=== PATIENT | female | born 1995 | race African-American/Black ===

== ENCOUNTER 2017-10-09 19:06 | Emergency (ER) | payer SELFPAY ==
[2017-10-09 19:14] VITALS: BP 150/79
--- NOTE | 2017-10-09 19:54 | ER Document Report ---
HPI - HPI Pain Level: 5 Notes: Patient is a 22-year-old female no significant past medical history presents to the ED complaining of a ring stuck on her right ring finger that began today. Patient states that her finger started swelling with no apparent injury or other cause. Patient try to get the ring off but was unsuccessful with conservative modalities. No other concerns or complaints. Patient states that her finger is starting to go numb. Denies any headache, fever, neck pain, URI, sore throat, chest pain, palpitations, syncope, cough, shortness of breath, wheeze, dyspnea, abdominal pain, nausea/vomiting/diarrhea, urinary retention, dysuria, hematuria, or rash. - ROS Systems Reviewed and Negative: Yes All other systems reviewed and negative Past Medical History - Social History Smoking Status: Never Smoker Family History: Reviewed & Not Pertinent Vertical Provider Document - CONSTITUTIONAL Agree With Documented VS: Yes Notes: PHYSICAL EXAMINATION: GENERAL: Well-appearing, well-nourished and in no acute distress. LUNGS: Breath sounds clear to auscultation bilaterally and equal. No wheezes rales or rhonchi. HEART: Regular rate and rhythm without murmurs, rubs, gallops. Musculoskeletal: Rt ring finger: + swelling and ring stuck in place. Extremities: No cyanosis, clubbing, or edema b/l. Peripheral pulses 2+. Capillary refill less than 3 seconds. PSYCH: Normal mood, normal affect. SKIN: Warm, Dry, normal turgor, no rashes or lesions noted. - INFECTION CONTROL TRAVEL OUTSIDE OF THE [place] IN LAST 30 DAYS: No Course - Re-evaluation Re-evalutation: 10/09/17 19:52 Ring was removed successfully by Dr. Padilla after failed attempts with the ring cutter's. Pt would not allow me to place the string due to pain which prompted me to ask Dr. Padilla for assistance who removed with lubricant and slow twisting. Patient to keep rings off of fingers for the foreseeable future. Conservative measures otherwise for symptoms. Recheck with your PCM in 3-5 days. Return to the ED with any worsening/concerning symptoms otherwise as reviewed discharge. Low suspicion for any neurovascular compromise, obvious tendon/ligament rupture, obvious fracture/dislocation, septic joint. Patient is in agreement. - Vital Signs Vital signs: Temp Pulse Resp BP Pulse Ox 97.9 F 105 H 150/79 H 98 10/09/17 19:13 10/09/17 19:13 10/09/17 19:13 10/09/17 19:13 Discharge - Discharge Clinical Impression: Tight ring on finger Condition: Stable Disposition: HOME, SELF-CARE Additional Instructions: Rest, Ice, Compression, Elevation Tylenol/ibuprofen as needed Avoid use of wearing rings for the foreseeable future Light stretches daily Strength exercises as able F/u with your PCP in 3-5 days for a recheck Return to the ED with any worsening symptoms and/or development of fever, headache, chest pain, palpitations, syncope, shortness of breath, trouble breathing, abdominal pain, n/v/d, muscle weakness/paralysis, numbness/tingling, swelling, redness, or other worsening symptoms that are concerning to you. Forms: Elevated Blood Pressure Referrals: [facility] [Provider Group] - Follow up as needed
== END 2017-10-09 20:00 | disposition home or self-care (01) ==
LOC: ER 19:06
DX: S60.444A External constriction of right ring finger, initial encounter (principal); W49.04XA Ring or other jewelry causing external constriction, initial encounter
CPT/HCPCS: 99283

== ENCOUNTER 2018-01-19 22:01 | Emergency (ER) | payer MEDICAID ==
[2018-01-19 22:29] VITALS: BP 130/53
[2018-01-19 22:43] LABS: ABSOLUTE EOSINOPHILS # (AUTO) 0.1 10^3/uL (0.0-0.6); ABSOLUTE LYMPHOCYTES (AUTO) 3.2 10^3/uL (0.5-4.7); ABSOLUTE MONOCYTES (AUTO) 0.7 10^3/uL (0.1-1.4); ABSOLUTE NEUT (AUTO) 4.8 10^3/uL (1.7-8.2); BASOPHILS % (AUTO) 0.5 % (0-2); HEMATOCRIT 39.5 % (36.0-47.0); LYMPHOCYTES % (AUTO) 36.2 % (13-45); MEAN CORPUSCULAR HEMOGLOBIN 26.8 pg (27.0-33.4); MEAN CORPUSCULAR HGB CONC 32.8 g/dL (32.0-36.0); MEAN CORPUSCULAR VOLUME 82 fl (80-97); MONOCYTES % (AUTO) 7.9 % (3-13); PLATELET COUNT 330 10^3/uL (150-450); RED BLOOD COUNT 4.85 10^6/uL (3.72-5.28); SEGMENTED NEUTROPHILS % (AUTO) 54.4 % (42-78); TOTAL CELLS COUNTED % (AUTO) 100 %; WHITE BLOOD COUNT 8.8 10^3/uL (4.0-10.5)
--- NOTE | 2018-01-19 23:26 | ER Document Report ---
ED Medical Screen (RME) - General Chief Complaint: Vaginal Bleeding Stated Complaint: ABDOMINAL PAIN/VAGINAL BLEEDING Time Seen by Provider: 01/19/18 23:22 Mode of Arrival: Ambulatory Information source: Patient Notes: Patient is a 22-year-old female who presents with chief complaint of vaginal bleeding and low abdominal pain. Patient reports that her period was due to start now, however she reports that the bleeding is much heavier than usual and she has severe low abdominal pain. Patient denies any fevers, dysuria, abnormal vaginal discharge. Patient reports that she completed a round of Flagyl today for bacterial vaginosis. Patient is not on any form of control. Exam: Tenderness to palpation across the lower abdomen, no guarding, no rebound no peritoneal signs. Lung sounds clear to auscultation bilaterally. I have greeted and performed a rapid initial assessment of this patient. A comprehensive ED assessment and evaluation of the patient, analysis of test results and completion of the medical decision making process will be conducted by additional ED providers. Dictation of this chart was performed using voice recognition software; therefore, there may be some unintended grammatical errors. TRAVEL OUTSIDE OF THE [place] IN LAST 30 DAYS: No - Related Data Allergies/Adverse Reactions: No Known Allergies Allergy (Verified 10/09/17 19:54) Past Medical History Renal/ Medical History: Denies: Hx Peritoneal Dialysis Physical Exam - Vital signs Vitals: Temp Pulse Resp BP Pulse Ox 98.5 F 76 16 130/53 H 98 01/19/18 22:28 01/19/18 22:28 01/19/18 22:28 01/19/18 22:28 01/19/18 22:28 Course - Vital Signs Vital signs: Temp Pulse Resp BP Pulse Ox 98.5 F 76 16 130/53 H 98 01/19/18 22:28 01/19/18 22:28 01/19/18 22:28 01/19/18 22:28 01/19/18 22:28 - Laboratory Result Diagrams: 01/19/18 22:20 Laboratory results interpreted by me: 01/19/18 22:20 MCH 26.8 L RDW 15.0 H
[2018-01-20 01:11] LABS: APPEARANCE,URINE SLIGHTLY-CLOUDY; BILIRUBIN,URINE NEGATIVE (NEGATIVE); COLOR,URINE YELLOW; GLUCOSE, URINE NEGATIVE (NEGATIVE); KETONES,URINE NEGATIVE (NEGATIVE); LEUKOCYTE ESTERASE,URINE TRACE (NEGATIVE); NITRITE,URINE NEGATIVE (NEGATIVE); PROTEIN,URINE NEGATIVE (NEGATIVE); URINE SPECIFIC GRAVITY 1.024
--- NOTE | 2018-01-20 01:13 | ER Document Report ---
ED General - General Chief Complaint: Vaginal Bleeding Stated Complaint: ABDOMINAL PAIN/VAGINAL BLEEDING Time Seen by Provider: 01/19/18 23:22 Mode of Arrival: Ambulatory Notes: Patient is a 22-year-old female with a past medical history of morbid obesity and irregular menstrual cycles who presents with 3 days of heavy vaginal bleeding and lower abdominal cramping. Patient states that she has irregular cycles that are often heavy but they do not usually cause this much bleeding or pain. She does describe a intermittent, cramping, moderate to severe lower abdominal pain. She states that she has tried Tylenol with moderate relief of her pain. Nothing worsens her pain. She denies any lightheadedness, syncope, saturating through more than 1 tampon per hour, chest pain or shortness of breath. She has not seen her primary doctor or [facility] regarding today's concerns. TRAVEL OUTSIDE OF THE [place] IN LAST 30 DAYS: No - Related Data Allergies/Adverse Reactions: No Known Allergies Allergy (Verified 10/09/17 19:54) Past Medical History - General Information source: Patient - Social History Smoking Status: Never Smoker Frequency of alcohol use: None Drug Abuse: None Lives with: Spouse/Significant other Family History: Reviewed & Not Pertinent Renal/ Medical History: Denies: Hx Peritoneal Dialysis Review of Systems - Review of Systems Notes: Constitutional: Negative for fever. HENT: Negative for sore throat. Eyes: Negative for visual changes. Cardiovascular: Negative for chest pain. Respiratory: Negative for shortness of breath. Gastrointestinal: Positive for lower abdominal pain Genitourinary: Positive for vaginal bleeding Musculoskeletal: Negative for back pain. Skin: Negative for rash. Neurological: Negative for headaches, weakness or numbness. 10 point ROS negative except as marked above and in HPI. Physical Exam - Vital signs Vitals: Temp Pulse Resp BP Pulse Ox 98.5 F 76 16 130/53 H 98 01/19/18 22:28 01/19/18 22:28 01/19/18 22:28 01/19/18 22:28 01/19/18 22:28 Interpretation: Normal Notes: PHYSICAL EXAMINATION: GENERAL: Well-appearing, well-nourished and in no acute distress. HEAD: Atraumatic, normocephalic. EYES: Pupils equal round and reactive to light, extraocular movements intact, sclera anicteric, conjunctiva are normal. ENT: nares patent, oropharynx clear without exudates. Moist mucous membranes. NECK: Normal range of motion, supple without lymphadenopathy LUNGS: Breath sounds clear to auscultation bilaterally and equal. No wheezes rales or rhonchi. HEART: Regular rate and rhythm without murmurs ABDOMEN: Soft, nontender, normoactive bowel sounds. No guarding, no rebound. No masses appreciated. EXTREMITIES: Normal range of motion, no pitting or edema. No cyanosis. NEUROLOGICAL: No focal neurological deficits. Moves all extremities spontaneously and on command. PSYCH: Normal mood, normal affect. SKIN: Warm, Dry, normal turgor, no rashes or lesions noted. Course - Re-evaluation Re-evalutation: 01/20/18 01:11 Presentation is most consistent with dysfunctional uterine bleeding and otherwise well-appearing patient. Her hemoglobin was within normal limits. She is not . No tachycardia or hypotension. Examination is otherwise unremarkable. She denies bleeding through more than 2 pads an hour at any point in time. No indication for ultrasound at this time based on benign exam, vitals and laboratories. No active bleeding at this time. Patient will be started on oral control pills to help discontinue the bleeding. She has been encouraged to follow-up with [facility]. At this time will discharge with return precautions and follow-up recommendations. Verbal discharge instructions given a the bedside and opportunity for questions given. Medication warnings reviewed. Patient is in agreement with this plan and has verbalized understanding of return precautions and the need for primary care follow-up in the next 24-72 hours. - Vital Signs Vital signs: Temp Pulse Resp BP Pulse Ox 98.5 F 76 16 130/53 H 98 01/19/18 22:28 01/19/18 22:28 01/19/18 22:28 01/19/18 22:28 01/19/18 22:28 - Laboratory Result Diagrams: 01/19/18 22:20 Laboratory results interpreted by me: 01/19/18 01/19/18 22:20 22:20 MCH 26.8 L RDW 15.0 H Urine Blood LARGE H Urine Urobilinogen 2.0 H Ur Leukocyte Esterase TRACE H Urine Ascorbic Acid 20 H Discharge - Discharge Clinical Impression: Dysfunctional uterine bleeding, Lower abdominal pain Condition: Good Disposition: HOME, SELF-CARE Additional Instructions: You were seen today for dysfunctional uterine bleeding. This is when you have vaginal bleeding and abdominal cramping off of your normal menstrual cycle. You have been started on control pills to help regulate your cycle and control your symptoms. You need to follow-up with [facility] or your primary care physician the next 1-3 days. Return immediately if you worsening pain, you began bleeding through more than 2 pads per hour for more than 3 hours, you pass out, have persistent vomiting, develop a fever greater than 100.4F, or any other symptoms that are concerning to you. Prescriptions: Norgestimate-Ethinyl Estradiol [Sprintec 28 Day Tablet] 1 each PO ASDIR PRN #2 packet PRN Reason: Forms: Return to Work Referrals: DOMINIQUE KAYE NP-C [Primary Care Provider] - Follow up as needed JUMA MIRELES MD [ACTIVE STAFF] - Follow up as needed
== END 2018-01-20 01:18 | disposition home or self-care (01) ==
LOC: ER 22:01
DX: N93.8 Other specified abnormal uterine and vaginal bleeding (principal); R10.30 Lower abdominal pain, unspecified; N92.6 Irregular menstruation, unspecified
CPT/HCPCS: 36415; 81001; 84703; 85025; 99284

== ENCOUNTER 2018-01-25 23:14 | Emergency (ER) | payer MEDICAID ==
--- NOTE | 2018-01-25 23:40 | ER Document Report ---
ED Neck/Back Problem - General Chief Complaint: Back Pain Stated Complaint: BACK PAIN Time Seen by Provider: 01/25/18 23:33 Mode of Arrival: Ambulatory Information source: Patient Notes: 22-year-old female presented to ED for complaint of low back pain that started yesterday. She states that she thought she was will stay home and treated herself until tomorrow when she could go to her primary care doctor. She states the pain got so bad radiating down her left leg that she could barely walk. Patient states she cannot sleep so she came to the emergency room. Patient is alert and oriented respirations regular and unlabored denies any loss of control of bowel or bladder or loss of sensation to the legs. Patient is able to walk with a even steady gait. Patient was just seen in the emergency room on January 19 and had a negative test. She states she just finished her period. TRAVEL OUTSIDE OF THE [place] IN LAST 30 DAYS: No - HPI Patient complains to provider of: Pain, Lower back Onset: Yesterday Where: Home Onset: Sudden Timing: Still present Quality of pain: Sharp Severity: Severe Pain Level: 5 Recent injury: No Associated symptoms: Like prior neck/back pain, Numbness/tingling, Radiation to leg, Lower back pain Exacerbated by: Sitting position Relieved by: Nothing Similar symptoms previously: Yes Recently seen / treated by doctor: Yes - Related Data Allergies/Adverse Reactions: No Known Allergies Allergy (Verified 10/09/17 19:54) Past Medical History - General Information source: Patient - Social History Smoking Status: Never Smoker Cigarette use (# per day): No Chew tobacco use (# tins/day): No Smoking Education Provided: No Frequency of alcohol use: None Drug Abuse: None Occupation: [employer] Lives with: Family Family History: Reviewed & Not Pertinent Patient has suicidal ideation: No Patient has homicidal ideation: No - Past Medical History Cardiac Medical History: Reports: None Pulmonary Medical History: Reports: None EENT Medical History: Reports: None Neurological Medical History: Reports: None Endocrine Medical History: Reports: None Renal/ Medical History: Reports: Hx Ovarian Cysts Malignancy Medical History: Reports: None GI Medical History: Reports: None Musculoskeltal Medical History: Reports Hx Musculoskeletal Deformity Skin Medical History: Reports None Psychiatric Medical History: Reports: None Traumatic Medical History: Reports: None Infectious Medical History: Reports: None Surgical Hx: Negative Review of Systems - Review of Systems Constitutional: No symptoms reported EENT: No symptoms reported Cardiovascular: No symptoms reported Respiratory: No symptoms reported Gastrointestinal: No symptoms reported Genitourinary: No symptoms reported Female Genitourinary: No symptoms reported Musculoskeletal: Back pain, Muscle pain, Muscle stiffness Skin: No symptoms reported Hematologic/Lymphatic: No symptoms reported Neurological/Psychological: No symptoms reported Physical Exam - Vital signs Vitals: Temp Pulse Resp BP Pulse Ox 98.2 F 72 20 129/79 H 97 01/25/18 23:20 01/25/18 23:20 01/25/18 23:20 01/25/18 23:20 01/25/18 23:20 Interpretation: Normal - General General appearance: Appears well, Alert - HEENT Head: Normocephalic, Atraumatic Eyes: Normal Pupils: PERRL - Respiratory Respiratory status: No respiratory distress Chest status: Nontender Breath sounds: Normal Chest palpation: Normal - Cardiovascular Rhythm: Regular Heart sounds: Normal auscultation Murmur: No - Abdominal Inspection: Normal Distension: No distension Bowel sounds: Normal Tenderness: Nontender Organomegaly: No organomegaly - Back Back: Normal, Tender - Bilateral low back pain radiating down across the left buttocks and down the leg. No: Vertebra tenderness - Extremities General upper extremity: Normal inspection, Nontender, Normal color, Normal ROM , Normal temperature General lower extremity: Normal inspection, Nontender, Normal color, Normal ROM , Normal temperature, Normal weight bearing. No: Ye's sign - Neurological Neuro grossly intact: Yes Cognition: Normal Orientation: AAOx4 [place] Coma Scale Eye Opening: Spontaneous [place] Coma Scale Verbal: Oriented Minal Coma Scale Motor: Obeys Commands [place] Coma Scale Total: 15 Speech: Normal Motor strength normal: LUE, RUE, LLE, RLE Sensory: Normal - Psychological Associated symptoms: Normal affect, Normal mood - Skin Skin Temperature: Warm Skin Moisture: Dry Skin Color: Normal Course - Re-evaluation Re-evalutation: 01/26/18 01:33 Chest x-ray with patient. Patient was treated with Toradol Decadron and Lidoderm patch. Patient was given instructions for ibuprofen and to follow-up with primary doctor. After performing a Medical Screening Examination, I estimate there is LOW risk for EXPANDING OR RUPTURED ABDOMINAL AORTIC ANEURYSM, CAUDA EQUINA SYNDROME, EPIDURAL MASS LESION, or HERNIATED DISK CAUSING SEVERE SPINAL STENOSIS, thus I consider the discharge disposition reasonable. I have reevaluated this patient multiple times and no significant life threatening changes are noted. The patient and I have discussed the diagnosis and risks, and we agree with discharging home and close follow-up. We also discussed returning to the Emergency Department immediately if new or worsening symptoms occur with the understanding that symptoms and presentations can change. We have discussed the symptoms which are most concerning (e.g., saddle anesthesia, urinary or bowel incontinence or retention, changing or worsening pain) that necessitate immediate return. - Vital Signs Vital signs: Temp Pulse Resp BP Pulse Ox 98.2 F 72 20 134/79 H 97 01/25/18 23:20 01/25/18 23:20 01/25/18 23:20 01/26/18 01:04 01/25/18 23:20 - Laboratory Laboratory results interpreted by me: 01/25/18 23:45 Urine Urobilinogen 2.0 H - Diagnostic Test Radiology reviewed: Image reviewed, Reports reviewed Discharge - Discharge Clinical Impression: Low back pain Qualifiers: Chronicity: acute Back pain laterality: bilateral Sciatica presence: with sciatica Sciatica laterality: sciatica of left side Qualified Code(s): M54.42 - Lumbago with sciatica, left side Condition: Stable Disposition: HOME, SELF-CARE Instructions: Use of [id number] Ibuprofen ([facility]) Additional Instructions: LOW BACK PAIN: Three out of every four people will have an episode of disabling back pain during their lifetime. Most commonly the pain is due to straining of the muscles and ligaments in the low back. Usual treatment includes: (1) Rest on a firm surface. Avoid lying on your stomach. (2) Ice pack the painful area. After a few days, gentle heat may be used intermittently to relax the area, or ice packs can be continued. (3) Medication may be needed -- muscle relaxers and antiinflammatory medicines are commonly used. (4) As the back improves, exercises are prescribed to strengthen the back and abdominal muscles. Your doctor will advise you on the proper care for your back at each stage in your recovery. You may be better in a few days -- or healing may take several weeks. If new symptoms of a "herniated disc" (radiation of pain, numbness, or tingling down the back of the leg or weakness in the leg) occur, you should be re-examined. Further testing may be necessary. MUSCLE RELAXERS: Muscle relaxing medications are usually prescribed for acute muscle spasm or injury to the neck and back. They are often combined with antiinflammatory pain medication for increased relief. You may stop the muscle relaxer when the pain and stiffness have improved. Start the medication again if spasms recur. Muscle relaxers may cause drowsiness, especially with the first dose. Do not operate machinery or drive while under the effects of the medication. Most muscle relaxers last up to 24 hours. Do not combine the medication with alcohol. ICE PACKS: Apply ice packs frequently against the painful area. Many different schedules are recommended, such as "20 minutes on, 20 minutes off" or "one hour ice, two hours rest." If you need to work, you may need to go longer between ice treatments. You should plan to have the area ice packed AT LEAST one fourth of the time. The ice should be applied over the wrap, tape, or splint, or over a layer of cloth -- not directly against the skin. Some ice bags have a built-in cloth and can be put directly on the skin. WARM PACKS: After approximately two days, apply gentle heat (such as a heating pad or hot water bottle) for about 20 to 30 minutes about every two hours -- at least four times daily. Warmth and elevation will help you make a more rapid recovery , and will ease the pain considerably. Do not use HOT heat, and never apply heat for longer than 30 minutes. The continuous heat can invisibly damage skin and muscles -- even when no burn is seen on the surface. Damaged muscles can make you MORE sore. Toradol Injection You have been given an injection of ketorolac tromethamine (Toradol). This is an excellent, safe drug for pain control. It also has potent antiinflammatory action. You should have significant pain relief within about one hour. Toradol is not addicting and is non-sedating. It does not interfere with driving or work. Call or return if you develop itching, hives, shortness of breath, or rash. STEROID MEDICATION: You have been given an injection of medicine of the cortisone/steroid class. This medication is used to control inflammation or allergy. It is often continued as a pill for a short period of time, until the acute process subsides. There are usually no side effects from short-term use of cortisone-like medications. Some persons feel an increased sense of well-being and are not sleepy at bedtime. Long-term use of cortisone medications is best avoided, unless required for a severe condition. If your condition does not remit, or relapses after the course of corticosteroid medication, you should consult your physician. Stretching Exercises for the Back The physician has recommended that you begin stretching exercises for your back. These are often used even while the back is painful. However, you should notify the physician if the activities seem to increase your pain. PELVIC TILT: Lie flat on your back with knees bent. Tighten your stomach and buttock muscles so it flattens your lower back against the floor. Hold 10 seconds. Repeat 10 times, twice daily. KNEE RAISE: Lying on the back with knees bent, raise one knee to your chest, then the other. Hold both knees against the chest 10 seconds, then lower one knee at a time. Repeat 10 times, twice daily. PARTIAL TRUNK RAISE: Lie face down, arms at your sides. Keeping your waist on the floor, use your arms raise your chest up. Support yourself on your elbows for 30 seconds. Repeat twice daily, increasing the time to two minutes as you recover. You will treated today with a Lidoderm patch to your back. This needs to be removed in 12 hours. Then you can use [id number] lidocaine cream. One brand is Aspercreme. Follow the instructions on the package. FOLLOW-UP CARE: If you have been referred to a physician for follow-up care, call the physician s office for an appointment as you were instructed or within the next two days. If you experience worsening or a significant change in your symptoms, notify the physician immediately or return to the Emergency Department at any time for re-evaluation. Forms: Elevated Blood Pressure, Return to Work Referrals: DOMINIQUE KAYE NP-C [Primary Care Provider] - Follow up as needed
[2018-01-25] MEDS ORDERED: LIDOCAINE 5% (700 MG) TRANSDERMAL ADH..PATCH TP ONE (23:41)
[2018-01-25] MEDS ORDERED: DEXAMETHASONE SOD PHOS INJ 10 MG/1 ML VIAL IM ONE (23:41)
[2018-01-25] MEDS ORDERED: KETOROLAC TROMETHAMINE INJ/PF 30 MG/1 ML SDV IM ONE (23:41)
--- NOTE | 2018-01-26 00:14 | RADIOLOGY REPORT (SQ) ---
EXAM DESCRIPTION: AP, lateral, and oblique views of the lumbar spine January 26, 2018 CLINICAL HISTORY: 22 years, Female, lumbar pain radiating down left leg COMPARISON: None. FINDINGS: There are 5 lumbar type vertebral bodies in normal anatomic alignment. There is no evidence of acute fracture or dislocation. There are no significant degenerative changes. Limited evaluation of the ribs and bony pelvis demonstrate no gross abnormalities. The soft tissue structures of the abdomen and pelvis are grossly normal. IMPRESSION: No acute fracture or dislocation of the lumbar spine.
[2018-01-26 00:25] LABS: APPEARANCE,URINE SLIGHTLY-CLOUDY; BILIRUBIN,URINE NEGATIVE (NEGATIVE); COLOR,URINE YELLOW; GLUCOSE, URINE NEGATIVE (NEGATIVE); KETONES,URINE NEGATIVE (NEGATIVE); LEUKOCYTE ESTERASE,URINE NEGATIVE (NEGATIVE); NITRITE,URINE NEGATIVE (NEGATIVE); PROTEIN,URINE NEGATIVE (NEGATIVE); URINE SPECIFIC GRAVITY 1.024
[2018-01-26 01:05] VITALS: BP 134/79
== END 2018-01-26 01:05 | disposition home or self-care (01) ==
LOC: ER 23:14
DX: M54.42 Lumbago with sciatica, left side (principal)
CPT/HCPCS: 99283; 96372; 81001; 72110; J1885; J3490; J1100

== ENCOUNTER 2018-11-23 23:58 | Emergency (ER) | payer MEDICAID ==
[2018-11-24] MEDS ORDERED: NORMAL SALINE 1000 ML 1,000 ML IV ONE (01:37)
[2018-11-24] MEDS ORDERED: ONDANSETRON HCL INJ/PF 4 MG/2 ML SDV IV ONE (01:37)
--- NOTE | 2018-11-24 01:49 | ER Document Report ---
ED General - General Chief Complaint: Nausea/Vomiting/Diarrhea Stated Complaint: VOMITING/DIARRHEA Time Seen by Provider: 11/24/18 01:28 Primary Care Provider: DOMINIQUE KAYE NP-C [NO LOCAL MD] - Follow up as needed Notes: Patient is a pleasant 23-year-old female presents with complaint of times yesterday. Patient denies any fevers. She said she has some mild intermittent abdominal pain but no current abdominal pain at this time. No dysuria. No abnormal vaginal bleeding or discharge. No other complaints at this time. No blood in her stool or emesis. No recent antibiotic use. No travel outside the country. TRAVEL OUTSIDE OF THE [place] IN LAST 30 DAYS: No - Related Data Allergies/Adverse Reactions: No Known Allergies Allergy (Verified 10/09/17 19:54) Past Medical History - Social History Smoking Status: Never Smoker Frequency of alcohol use: None Drug Abuse: None Family History: Reviewed & Not Pertinent Renal/ Medical History: Reports: Hx Ovarian Cysts. Denies: Hx Peritoneal Dialysis Musculoskeletal Medical History: Reports Hx Musculoskeletal Deformity Review of Systems - Review of Systems Notes: My Normal Review Basic REVIEW OF SYSTEMS: CONSTITUTIONAL : Denies fever, chills, or sweats. Denies recent illness. RESPIRATORY: Denies cough, cold, or chest congestion. Denies shortness of breath, difficulty breathing, or wheezing. GASTROINTESTINAL: Vomiting and diarrhea GENITOURINARY: Denies difficulty urinating, painful urination, burning, frequency, or blood in urine. MUSCULOSKELETAL: Denies neck or back pain or joint pain or swelling. SKIN: Denies rash or skin lesions. NEUROLOGICAL: Denies altered mental status or loss of consciousness. ALL OTHER SYSTEMS REVIEWED AND NEGATIVE. Physical Exam - Vital signs Vitals: Temp Pulse Resp BP Pulse Ox 98.3 F 84 18 124/80 100 11/24/18 00:15 11/24/18 00:15 11/24/18 00:15 11/24/18 00:11/24/18 00:15 - Notes Notes: General Appearance: Well nourished, alert, cooperative, no acute distress, no obvious discomfort. Vitals: reviewed, See vital signs table. Head: no swelling or tenderness to the head Eyes: PERRL, EOMI, Conjuctiva clear Mouth: No decreasd moisture Lungs: No wheezing, No rales, No rhonci, No accessory muscle use, good air exchange bilaterally. Heart: Normal rate, Regular rythm, No murmur, no rub Abdomen: Normal BS, soft, No rigidity, No reproducible pain to palpation of the abdomen. Extremities: strength 5/5 in all extremities, good pulses in all extremities, no swelling or tenderness in the extremities, no edema. Skin: warm, dry, appropriate color, no rash Neuro: speech clear, oriented x 3, normal affect, responds appropriately to questions. Course - Re-evaluation Re-evalutation: 11/24/18 03:00 Patient is feeling improved. I feel patient safe to be discharged home. She sanz s had no other vomiting. Labs are unremarkable. I feel she is safe to be discharged home. Encouraged to return to ER if she has fevers, recurrent vomiting, or if she feels that she is worsening in any way. Patient agrees with plan will be discharged home. - Vital Signs Vital signs: Temp Pulse Resp BP Pulse Ox 98.3 F 84 18 124/80 100 11/24/18 00:15 11/24/18 00:15 11/24/18 00:15 11/24/18 00:15 11/24/18 00:15 - Laboratory Result Diagrams: 11/24/18 01:35 11/24/18 01:35 Laboratory results interpreted by me: 11/24/18 01:35 RDW 14.4 H Discharge - Discharge Clinical Impression: Vomiting and diarrhea Condition: Good Disposition: HOME, SELF-CARE Additional Instructions: You have a vomiting diarrheal illness. This is usually related to a viral illness. Currently your blood work does not show any concerning findings. It is important to keep your nausea and vomiting under control and to stay well- hydrated. We have therefore prescribed a medicine called Zofran which will help control your nausea. Please drink lots of non-caffeinated liquids. Please eat a bland diet over the next 48 hours. Please return to ER immediately if you have intractable vomiting, bloody stools, fevers, or feel unwell. Prescriptions: Ondansetron [Zofran Odt 4 mg Tablet] 1 tab PO Q4H PRN #15 tab.rapdis PRN Reason: For Nausea/Vomiting Forms: Special Work Note Referrals: DOMINIQUE KAYE NP-C [NO LOCAL MD] - Follow up in 3-5 days
[2018-11-24 02:00] LABS: ABSOLUTE EOSINOPHILS # (AUTO) 0.1 10^3/uL (0.0-0.6); ABSOLUTE LYMPHOCYTES (AUTO) 2.8 10^3/uL (0.5-4.7); ABSOLUTE MONOCYTES (AUTO) 0.4 10^3/uL (0.1-1.4); ABSOLUTE NEUT (AUTO) 4.3 10^3/uL (1.7-8.2); BASOPHILS % (AUTO) 0.5 % (0-2); EOSINOPHILS % (AUTO) 0.8 % (0-6); HEMOGLOBIN 13.7 g/dL (12.0-15.5); LYMPHOCYTES % (AUTO) 36.6 % (13-45); MEAN CORPUSCULAR HGB CONC 32.7 g/dL (32.0-36.0); MEAN CORPUSCULAR VOLUME 83 fl (80-97); MONOCYTES % (AUTO) 5.6 % (3-13); PLATELET COUNT 351 10^3/uL (150-450); RED BLOOD COUNT 5.08 10^6/uL (3.72-5.28); RED CELL DISTRIBUTION WIDTH 14.4 % (11.5-14.0); SEGMENTED NEUTROPHILS % (AUTO) 56.5 % (42-78); TOTAL CELLS COUNTED % (AUTO) 100 %; WHITE BLOOD COUNT 7.7 10^3/uL (4.0-10.5)
[2018-11-24 02:22] LABS: ALANINE AMINOTRANSFERASE 24 U/L (9-52); ALBUMIN 4.3 g/dL (3.5-5.0); ALKALINE PHOSPHATASE 72 U/L (38-126); ANION GAP 11 (5-19); ASPARTATE AMINO TRANSFERASE 17 U/L (14-36); BILIRUBIN,DIRECT 0.3 mg/dL (0.0-0.4); BILIRUBIN,TOTAL 0.6 mg/dL (0.2-1.3); BLOOD UREA NITROGEN 19 mg/dL (7-20); CARBON DIOXIDE 24 mmol/L (22-30); CHLORIDE 105 mmol/L (98-107); GLUCOSE 89 mg/dL (75-110); POTASSIUM 4.3 mmol/L (3.6-5.0); SODIUM 139.6 mmol/L (137-145); TOTAL PROTEIN 7.7 g/dL (6.3-8.2)
[2018-11-24] MEDS ORDERED: ONDANSETRON ODT 4 MG TAB (6 TAB/ER DISP) PO PRN (02:59)
[2018-11-24 03:10] VITALS: BP 138/60
== END 2018-11-24 03:11 | disposition home or self-care (01) ==
LOC: ER 23:58
DX: R11.2 Nausea with vomiting, unspecified (principal); R19.7 Diarrhea, unspecified
CPT/HCPCS: 99284; 96361; 96374; 36415; 83735; 85025; 80053; J2405; J7030

== ENCOUNTER 2019-07-25 11:19 | Emergency (ER) | payer MEDICAID ==
[2019-07-25 11:30] VITALS: BP 150/80
--- NOTE | 2019-07-25 12:02 | ER Document Report ---
ED Medical Screen (RME) - General Chief Complaint: Abdominal Pain Stated Complaint: STOMACH PAIN Time Seen by Provider: 07/25/19 11:59 Mode of Arrival: Ambulatory Information source: Patient Notes: Otherwise healthy 24-year-old female presenting with intermittent low abdominal pain over the last 2 weeks. Patient reports pain is worsening now. Denies any nausea, vomiting, diarrhea, dysuria, vaginal bleeding or abnormal vaginal discharge. She states that the pain comes and goes and is worse at night and first thing in the morning. Exam: Mild tenderness with palpation across the low abdomen but no obvious distress. I have greeted and performed a rapid initial assessment of this patient. A comprehensive ED assessment and evaluation of the patient, analysis of test results and completion of the medical decision making process will be conducted by additional ED providers. I have specifically instructed the patient or family members with the patient to immediately return to any nursing staff should anything change in the patient's condition or with their chief complaint. TRAVEL OUTSIDE OF THE [place] IN LAST 30 DAYS: No - Related Data Allergies/Adverse Reactions: No Known Allergies Allergy (Verified 07/25/19 11:59) Past Medical History Renal/ Medical History: Reports: Hx Ovarian Cysts. Denies: Hx Peritoneal Dialysis Musculoskeltal Medical History: Reports Hx Musculoskeletal Deformity Physical Exam - Vital signs Vitals: Temp Pulse Resp BP Pulse Ox 99.0 F 81 16 150/80 H 100 07/25/19 11:07/25/19 11:07/25/19 11:07/25/19 11:07/25/19 11:29 Course - Vital Signs Vital signs: Temp Pulse Resp BP Pulse Ox 99.0 F 81 16 150/80 H 100 07/25/19 11:07/25/19 11:07/25/19 11:07/25/19 11:07/25/19 11:29
[2019-07-25 12:32] LABS: ABSOLUTE BASOPHILS # (AUTO) 0.1 10^3/uL (0.0-0.2); ABSOLUTE EOSINOPHILS # (AUTO) 0.1 10^3/uL (0.0-0.6); ABSOLUTE LYMPHOCYTES (AUTO) 2.3 10^3/uL (0.5-4.7); ABSOLUTE MONOCYTES (AUTO) 0.6 10^3/uL (0.1-1.4); ABSOLUTE NEUT (AUTO) 3.8 10^3/uL (1.7-8.2); BASOPHILS % (AUTO) 0.8 % (0-2); LYMPHOCYTES % (AUTO) 33.9 % (13-45); MEAN CORPUSCULAR HEMOGLOBIN 27.8 pg (27.0-33.4); MEAN CORPUSCULAR HGB CONC 33.4 g/dL (32.0-36.0); MEAN CORPUSCULAR VOLUME 83 fl (80-97); MONOCYTES % (AUTO) 9.1 % (3-13); PLATELET COUNT 297 10^3/uL (150-450); RED BLOOD COUNT 5.03 10^6/uL (3.72-5.28); RED CELL DISTRIBUTION WIDTH 14.3 % (11.5-14.0); SEGMENTED NEUTROPHILS % (AUTO) 55.2 % (42-78); TOTAL CELLS COUNTED % (AUTO) 100 %; WHITE BLOOD COUNT 6.9 10^3/uL (4.0-10.5)
[2019-07-25 12:49] LABS: APPEARANCE,URINE SLIGHTLY-CLOUDY; BILIRUBIN,URINE NEGATIVE (NEGATIVE); COLOR,URINE YELLOW; GLUCOSE, URINE NEGATIVE (NEGATIVE); KETONES,URINE NEGATIVE (NEGATIVE); LEUKOCYTE ESTERASE,URINE MODERATE (NEGATIVE); NITRITE,URINE NEGATIVE (NEGATIVE); PROTEIN,URINE 30 mg/dL (NEGATIVE); URINE SPECIFIC GRAVITY 1.027
[2019-07-25 12:58] LABS: ALBUMIN 4.1 g/dL (3.5-5.0); ALKALINE PHOSPHATASE 53 U/L (38-126); ANION GAP 8 (5-19); ASPARTATE AMINO TRANSFERASE 21 U/L (14-36); BILIRUBIN,DIRECT 0.1 mg/dL (0.0-0.4); BILIRUBIN,TOTAL 0.6 mg/dL (0.2-1.3); BLOOD UREA NITROGEN 13 mg/dL (7-20); CALCIUM 9.5 mg/dL (8.4-10.2); CARBON DIOXIDE 23 mmol/L (22-30); CHLORIDE 107 mmol/L (98-107); GLUCOSE 75 mg/dL (75-110); POTASSIUM 4.3 mmol/L (3.6-5.0); TOTAL PROTEIN 7.5 g/dL (6.3-8.2)
--- NOTE | 2019-07-25 14:53 | ER Document Report ---
ED GI/ - General Chief Complaint: Abdominal Pain Stated Complaint: STOMACH PAIN Time Seen by Provider: 07/25/19 11:59 Mode of Arrival: Ambulatory Notes: Patient is a 24-year-old female who is a G3, P2 who presents emergency department with a chief complaint of lower abdominal pain. Patient reports she is had intermittent lower abdominal pain for 2 weeks. Patient reports this is worse at night. Patient denies vaginal bleeding or discharge. Patient reports she is sexually active not currently on control. Patient reports her last menstrual cycle was on June 18 and lasted until June 24. Patient reports she has not had any nausea, vomiting or diarrhea. Patient denies fever. Patient reports she feels like she may have a urinary tract infection as she is having some discomfort with urination. TRAVEL OUTSIDE OF THE [place] IN LAST 30 DAYS: No - Related Data Allergies/Adverse Reactions: No Known Allergies Allergy (Verified 07/27/19 13:45) Past Medical History - General Information source: Patient - Social History Smoking Status: Current Every Day Smoker Chew tobacco use (# tins/day): No Frequency of alcohol use: None Drug Abuse: None Lives with: Family Family History: Reviewed & Not Pertinent Patient has suicidal ideation: No Patient has homicidal ideation: No - Past Medical History Cardiac Medical History: Reports: None Pulmonary Medical History: Reports: None EENT Medical History: Reports: None Neurological Medical History: Reports: None Endocrine Medical History: Reports: None Renal/ Medical History: Reports: Hx Ovarian Cysts. Denies: Hx Peritoneal Dialysis Malignancy Medical History: Reports: None GI Medical History: Reports: None Musculoskeletal Medical History: Reports Hx Musculoskeletal Deformity Skin Medical History: Reports None Psychiatric Medical History: Reports: None Traumatic Medical History: Reports: None Infectious Medical History: Reports: None Surgical Hx: Negative Review of Systems - Review of Systems Constitutional: No symptoms reported EENT: No symptoms reported Cardiovascular: No symptoms reported Respiratory: No symptoms reported Gastrointestinal: See HPI Genitourinary: No symptoms reported Female Genitourinary: No symptoms reported Musculoskeletal: No symptoms reported Skin: No symptoms reported Hematologic/Lymphatic: No symptoms reported Neurological/Psychological: No symptoms reported Physical Exam - Vital signs Vitals: Temp Pulse Resp BP Pulse Ox 99.0 F 81 16 150/80 H 100 07/25/19 11:29 07/25/19 11:29 07/25/19 11:29 07/25/19 11:29 07/25/19 11:29 Interpretation: Hypertensive - Notes Notes: GENERAL: Well-appearing, well-nourished and in no acute distress. HEAD: Atraumatic, normocephalic. EYES: Pupils equal round and reactive to light, extraocular movements intact, sclera anicteric, conjunctiva are normal. ENT: TMs normal, nares patent, oropharynx clear without exudates. Moist mucous membranes. NECK: Normal range of motion, supple without lymphadenopathy or JVD. LUNGS: Breath sounds clear to auscultation bilaterally and equal. No wheezes rales or rhonchi. HEART: Regular rate and rhythm without murmurs, rubs or gallops. ABDOMEN: Soft, nontender, normoactive bowel sounds. No guarding, no rebound. No masses appreciated. BACK: No cervical, thoracic, lumbar midline tenderness. No saddle anesthesia, normal distal neurovascular exam. GENITOURINARY: Deferred. EXTREMITIES: Normal range of motion, no pitting or edema. No clubbing or cyanosis. NEUROLOGICAL: Cranial nerves II through XII grossly intact. Normal speech, normal gait. PSYCH: Normal mood, normal affect. SKIN: Warm, Dry, normal turgor, no rashes or lesions noted. Course - Re-evaluation Re-evalutation: 07/25/19 14:53 Patient reports that her lower abdominal pain feels like a cramping and has been intermittent for about 2 weeks. Patient's abdominal examination is unremarkable at this time. Patient reports sometimes the pain is worse on the right side of her pelvis. Patient reports she does have a history of ovarian cyst. Will obtain an ultrasound of the uterus to rule out acute abnormality such as ovarian torsion. Patient nontoxic-appearing in no acute distress. 07/25/19 19:29 I was told by the staff that the patient wanted to leave and not wait for her ultrasound results. Patient left AMA. 07/25/19 20:14 I did speak with my attending Dr. Dooley as well as OBGYN regarding the patient's ultrasound read. There is a questionable masslike lesion of the right adnexa. Dr. Quiñonez recommends repeat quant in 48 hours and to look for doubling as well as an ultrasound. I did call and speak with the patient personally who will return to the ER in 48 hours to have a repeat quant and ultrasound. I did reiterate the importance of possible ectopic with the patient and for her to return sooner if she were to develop any vaginal bleeding, severe pain, lightheadedness, dizziness, fever or any new or worsening symptoms. Patient did verbalize understanding denies questions over the phone. Patient reports currently she is not having any of the symptoms. - Vital Signs Vital signs: Temp Pulse Resp BP Pulse Ox 99.0 F 81 16 150/80 H 100 07/25/19 11:29 07/25/19 11:29 07/25/19 11:29 07/25/19 11:29 07/25/19 11:29 - Laboratory Result Diagrams: 07/25/19 12:15 07/25/19 12:15 Laboratory results interpreted by me: 07/25/19 07/25/19 07/25/19 12:15 12:15 12:15 RDW 14.3 H Beta HCG, Quant 368.17 H Urine Protein 30 H Urine Urobilinogen 2.0 H Ur Leukocyte Esterase MODERATE H Urine HCG, Qual POSITIVE H - Diagnostic Test Radiology reviewed: Reports reviewed Radiology results interpreted by me: 07/25/19 20:14 Transvaginal US 07/25/19 14:45 IMPRESSION: 1. No intrauterine identified. Early of unc ertain viability. Recommend follow-up ultrasound in 7 to 14 days and serial beta HCG, with ectopic precautions. 2. Heterogeneous masslike lesion of the right adnexa, which appears distinct from the ovary measuring 2.5 x 1.7 x 2.0 cm with internal flow. There is no internal structure suggestive of ectopic . This is of uncertain nature or significance. Recommend follow-up evaluation in 7 to 14 days along with the above recommended serial HCG and ectopic precautions to exclude developing ectopic . Trace adjacent free fluid in the right adnexa, nonspecific. 3. Simple cyst or follicle of the right ovary. Arterial and venous Doppler flow is present in the right ovary. Trimester of : First trimester - 0 to 13 weeks. Discharge - Discharge Clinical Impression: Abdominal cramping Qualifiers: Weeks of gestation: less than 8 weeks Qualified Code(s): Z3A.01 - Less than 8 weeks gestation of Condition: Stable Disposition: AGAINST MEDICAL ADVICE
--- NOTE | 2019-07-25 19:45 | RADIOLOGY REPORT (SQ) ---
EXAM DESCRIPTION: U/S OB TRANSVAG W/DOPPLER COMPLETED DATE/TIME: 07/25/2019 3:21 pm REASON FOR STUDY: + hcg, right pelvic pain COMPARISON: None. TECHNIQUE: Transvaginal static and realtime grayscale images acquired of the pelvis. Additional anjali cted spectral and color Doppler images recorded. All images stored on PACs. bHCG: Pending. CLINICAL DATES: 5 weeks, 2 days LIMITATIONS: None. FINDINGS: FETUS: No intrauterine identified. UTERUS: No masses. No anomalies. Endometrial thickness 1.1 cm. CERVICAL LENGTH: 2.7 cm. Closed. RIGHT ADNEXA: There is a simple appearing cyst or follicle in the right ovary measuring 1.9 cm. Trace free fluid in the right adnexa. Heterogeneous masslike lesion of the right adnexa, which appears distinct from the ovary measuring 2. 5 x 1.7 x 2.0 cm with internal flow. There is no internal structure suggestive of ectopic . LEFT ADNEXA: Normal ovary with normal vascular flow. No adnexal free fluid. No adnexal masses. FREE FLUID: None. OTHER: No other significant finding. IMPRESSION: 1. No intrauterine identified. Early of uncertain viability. Garcia mmend follow-up ultrasound in 7 to 14 days and serial beta HCG, with ectopic precautions. 2. Heterogeneous masslike lesion of the right adnexa, which appears distinct from the ovary measuring 2.5 x 1.7 x 2.0 cm with internal flow. There is no internal structure suggestive of ectopic pregnan cy. This is of uncertain nature or significance. Recommend follow-up evaluation in 7 to 14 days marco ng with the above recommended serial HCG and ectopic precautions to exclude developing ectopic pregna ncy. Trace adjacent free fluid in the right adnexa, nonspecific. 3. Simple cyst or follicle of the right ovary. Arterial and venous Doppler flow is present in the r ight ovary. Trimester of : First trimester - 0 to 13 weeks. TECHNICAL DOCUMENTATION: JOB ID: [id number] [email or web address]- All Rights Reserved rev Reading location - IP/workstation name: [email or web address]
== END 2019-07-25 16:05 | disposition left against medical advice (07) ==
LOC: ER 11:19
DX: O26.891 Other specified pregnancy related conditions, first trimester (principal); R10.30 Lower abdominal pain, unspecified; Z3A.01 Less than 8 weeks gestation of pregnancy
CPT/HCPCS: 36415; 76817; 80053; 81001; 81025; 83690; 84702; 85025; 87086; 87088; 93976; 99281

== ENCOUNTER 2019-09-30 06:35 | Day surgery (SDC) | payer MEDICAID ==
[2019-09-30] MEDS ORDERED: CEFAZOLIN INJ 1 GM VIAL ONE (07:04)
[2019-09-30] MEDS ORDERED: IBUPROFEN 800 MG TABLET PO PRN (07:15)
[2019-09-30] MEDS ORDERED: RINGERS SOLUTION,LACTATED 1,000 ML IV PRN (07:15)
[2019-09-30] MEDS ORDERED: OXYCODONE-ACETAMINOPHEN 5-325 MG TABLET PO PRN ×3 (07:16→11:30)
[2019-09-30 07:29] LABS: ABSOLUTE BASOPHILS # (AUTO) 0.1 10^3/uL (0.0-0.2); ABSOLUTE LYMPHOCYTES (AUTO) 2.8 10^3/uL (0.5-4.7); ABSOLUTE MONOCYTES (AUTO) 0.6 10^3/uL (0.1-1.4); ABSOLUTE NEUT (AUTO) 4.9 10^3/uL (1.7-8.2); BASOPHILS % (AUTO) 0.8 % (0-2); EOSINOPHILS % (AUTO) 0.5 % (0-6); HEMATOCRIT 37.4 % (36.0-47.0); LYMPHOCYTES % (AUTO) 33.2 % (13-45); MEAN CORPUSCULAR HEMOGLOBIN 28.2 pg (27.0-33.4); MEAN CORPUSCULAR HGB CONC 34.8 g/dL (32.0-36.0); MEAN CORPUSCULAR VOLUME 81 fl (80-97); MONOCYTES % (AUTO) 7.1 % (3-13); PLATELET COUNT 278 10^3/uL (150-450); RED BLOOD COUNT 4.61 10^6/uL (3.72-5.28); RED CELL DISTRIBUTION WIDTH 13.4 % (11.5-14.0); SEGMENTED NEUTROPHILS % (AUTO) 58.4 % (42-78); TOTAL CELLS COUNTED % (AUTO) 100 %; WHITE BLOOD COUNT 8.4 10^3/uL (4.0-10.5)
[2019-09-30] MEDS ORDERED: DIPHENHYDRAMINE HCL 50 MG/ML VIAL IV PRN ×2 (07:32→10:05)
[2019-09-30] MEDS ORDERED: MEPERIDINE HCL/PF INJ 25 MG/1 ML DISP.SYRIN IV PRN ×2 (07:32→10:05)
[2019-09-30] MEDS ORDERED: PROMETHAZINE HCL INJ 25 MG/1 ML VIAL IV PRN ×2 (07:32→10:05)
[2019-09-30] MEDS ORDERED: FENTANYL CITRATE INJ/PF 100 MCG/2 ML AMPUL IV PRN ×6 (07:32→10:05)
[2019-09-30] MEDS ORDERED: MORPHINE SULFATE 10 MG/ML INJ IV PRN ×2 (07:32→10:05)
[2019-09-30] MEDS ORDERED: MIDAZOLAM 2 MG/2 ML INJ ONE (09:35)
[2019-09-30] MEDS ORDERED: ONDANSETRON HCL INJ/PF 4 MG/2 ML SDV ONE (09:35)
[2019-09-30] MEDS ORDERED: FENTANYL CITRATE INJ/PF 100 MCG/2 ML AMPUL ONE (09:35)
[2019-09-30] MEDS ORDERED: PROPOFOL INJ 200 MG/20 ML VIAL IV ONE (09:36)
--- NOTE | 2019-09-30 10:17 | Operative Report ---
Operative Report DATE OF SURGERY: 09/30/19 PREOPERATIVE DIAGNOSIS: Missed AB POSTOPERATIVE DIAGNOSIS: Same OPERATION: Suction D&C SURGEON: MARY NEWSOME ANESTHESIA: GA TISSUE REMOVED OR ALTERED: Products of conception ESTIMATED BLOOD LOSS: 50 cc PROCEDURE: After appropriate consents had been obtained, the patient was taken to the Operating Room where general anesthesia was placed without difficulty. She was prepped and draped in the normal sterile fashion in the dorsal lithotomy position. Exam under anesthesia was performed with an 8 week sized uterus and no adnexal pathology palpable. A speculum was placed in the vagina. The anterior lip the cervix was grasped with a single-tooth tenaculum. The uterus sounded to 12 cm. This was opened to visually tolerate a #10 suction catheter and was introduced and products of conception were removed. The suction catheter was removed and gentle curettage was then undertaken throughout the cavity. The suction catheter was introduced once again and additional products of conception and blood clot were removed. The curette was once again introduced and the cavity was,felt to be empty of further tissue. All instruments were then removed. The uterus was hemostatic. Sponge counts were correct. Patient tolerated procedure well and transferred to recovery in stable condition.
[2019-09-30] MEDS: FENTANYL CITRATE INJ/PF 100 MCG/2 ML AMPUL ONE ×2 (10:22→10:30)
[2019-09-30] MEDS ORDERED: PROMETHAZINE HCL INJ 25 MG/1 ML VIAL ONE (10:29)
[2019-09-30] MEDS ORDERED: OXYCODONE-ACETAMINOPHEN 5-325 MG TABLET ONE (11:11)
[2019-09-30] MEDS ORDERED: ONDANSETRON HCL 8 MG TABLET PO PRN (11:23)
[2019-09-30] MEDS ORDERED: IBUPROFEN 800 MG TABLET PO SCH (14:00)
[2019-09-30 15:43] VITALS: BP 129/81
== END 2019-09-30 12:50 | disposition home or self-care (01) ==
LOC: OROUT 06:35
PROVIDERS: ATTEND Obstetrics & Gynecology Gynecology
DX: O02.1 Missed abortion (principal)
CPT/HCPCS: 36415; 85025; 88305 ×2; 01965; 59820; J2250; J0690; J3010; J2405; J2704; 1965; J2550

== ENCOUNTER 2019-12-09 17:11 | Emergency (ER) | payer MEDICAID ==
[2019-12-09] MEDS ORDERED: KETOROLAC TROMETHAMINE 60 MG/2 ML SDV IM ONE (17:56)
[2019-12-09] MEDS ORDERED: DEXAMETHASONE SOD PHOS INJ 10 MG/1 ML VIAL IM ONE (17:56)
--- NOTE | 2019-12-09 18:30 | ER Document Report ---
HPI - HPI Time Seen by Provider: 12/09/19 17:46 Pain Level: 5 Notes: 24-year-old female presents emergency room for complaints of left hand pain that started approximately 4 days ago. Denies any trauma, denies any history of hip pain. Patient states worse when walking or up and down stairs. Tried [id number] ibuprofen with some relief has not found any relief with Tylenol. Denies prior history of lower back pain, hip pain or leg pain. Better when she is standing or laying flat. Patient states her menstrual cycle is due to start tomorrow. Denies fevers, chills, chest pain,palpitations, shortness of breath, dyspnea, nausea, vomiting, diarrhea, abdominal pain, hematuria, neck pain, weakness, bowel or bladder dysfunction, saddle anesthesia, numbness or tingling in bilateral upper or lower extremities equally, muscle paralysis, weakness in bilateral upper or lower extremities equally or rash. Last menstrual cycle was November 10, 2019 REVIEW OF SYSTEMS:reviewed vital signs by RN CONSTITUTIONAL : Denies fever, chills, or sweats. Denies recent illness. EENT: Denies eye, ear, throat, or mouth pain or symptoms. Denies nasal or sinus congestion or discharge. Denies throat, tongue, or mouth swelling or difficulty swallowing. CARDIOVASCULAR: Denies chest pain. Denies palpitations or racing or irregular heart beat. Denies ankle edema. RESPIRATORY: Denies cough, cold, or chest congestion. Denies shortness of breath, difficulty breathing, or wheezing. GASTROINTESTINAL: Denies abdominal pain or distention. Denies nausea, vomiting, or diarrhea. Denies blood in vomitus, stools, or per rectum. Denies black, tarry stools. Denies constipation. GENITOURINARY: Denies difficulty urinating, painful urination, burning, frequency, blood in urine, or discharge. FEMALE GENITOURINARY: Denies vaginal bleeding, heavy or abnormal periods, irregular periods. Denies vaginal discharge or odor. MUSCULOSKELETAL: Reports left upper leg pain. denies back or neck pain or stiffness. Denies joint pain or swelling. SKIN: Denies rash, lesions or sores. HEMATOLOGIC : Denies easy bruising or bleeding. LYMPHATIC: Denies swollen, enlarged glands. NEUROLOGICAL: Denies confusion or altered mental status. Denies passing out or loss of consciousness. Denies dizziness or lightheadedness. Denies headache. Denies weakness or paralysis or loss of use of either side. Denies problems with gait or speech. Denies sensory loss, numbness, or tingling. Denies seizures. PSYCHIATRIC: Denies anxiety or stress. Denies depression, suicidal ideation, or homicidal ideation. ALL OTHER SYSTEMS REVIEWED AND NEGATIVE. PHYSICAL EXAMINATION: GENERAL: Well-appearing, well-nourished and in no acute distress. HEAD: Atraumatic, normocephalic. EYES: Pupils equal round and reactive to light, extraocular movements intact, conjunctiva are normal. ENT: Nares patent, oropharynx clear without exudates. Moist mucous membranes. NECK: Normal range of motion, supple without lymphadenopathy LUNGS: Breath sounds clear to auscultation bilaterally and equal. No wheezes rales or rhonchi. HEART: Regular rate and rhythm without murmurs ABDOMEN: Soft, nontender, nondistended abdomen. No guarding, no rebound. No masses appreciated. Female : deferred Musculoskeletal: Normal range of motion, no pitting or edema. No cyanosis. No pain on left hip on palpation no pain with adduction, adduction, extension. pain in L upper thigh with flexion of knee. dtr + 2 bilaterally and equally in BLE. full motor and sensory function. normal gait. cap refill < 3 seconds. distal pulses + 2 in BLE. lower back examination wnl. No erythema, warmth to touch, deformity, crepitus or obvious asymmetry of the affected leg compared to other of hips equally. NEUROLOGICAL: Cranial nerves grossly intact. Normal speech, normal gait. Normal sensory, motor exams PSYCH: Normal mood, normal affect. SKIN: Warm, Dry, normal turgor, no rashes or lesions noted. Dictation was performed using PrePlay recognition software - CONSTITUTIONAL Constitutional: DENIES: Fever, Chills - REPRODUCTIVE Reproductive: DENIES: : - MUSCULOSKELETAL Musculoskeletal: REPORTS: Extremity pain Past Medical History - General Information source: Patient - Social History Smoking Status: Never Smoker Family History: Reviewed & Not Pertinent Patient has homicidal ideation: No - Past Medical History Cardiac Medical History: Denies: Hx Coronary Artery Disease, Hx Heart Attack, Hx Hypertension Pulmonary Medical History: Denies: Hx Asthma, Hx Bronchitis, Hx COPD, Hx Pneumonia Neurological Medical History: Denies: Hx Cerebrovascular Accident, Hx Seizures Renal/ Medical History: Reports: Hx Ovarian Cysts. Denies: Hx Peritoneal Dialysis Musculoskeletal Medical History: Denies Hx Arthritis, Reports Hx Musculoskeletal Deformity Vertical Provider Document - CONSTITUTIONAL Agree With Documented VS: Yes Exam Limitations: No Limitations General Appearance: WD/WN - INFECTION CONTROL TRAVEL OUTSIDE OF THE [place] IN LAST 30 DAYS: No Course - Re-evaluation Re-evalutation: 12/09/19 18:30 Afebrile vital stable no distress. Nurses notes reviewed. hCG negative. Patient given 60 mg of Toradol IM and 10 mg of Decadron IM. Discussed the importance of rest, applying heat 20 minutes on 20 minutes off several times a day, taking NSAIDs and following up with PCP payment specialist for further evaluation of iliotibial band syndrome. Do not feel that an x-ray is necessary today as there is no joint pain on palpation. Work note given to have a few days off to rest as she states she goes up and down steps for her job. After performing a Medical Screening Examination, I estimate there is LOW risk for OPEN FRACTURE, COMPARTMENT SYNDROME, DEEP VENOUS THROMBOSIS, ACUTE TENDON RUPTURE, or NEUROVASCULAR INJURY thus I consider the discharge disposition reasonable. I have reevaluated this patient multiple times and no significant life threatening changes are noted. The patient and I have discussed the diagnosis and risks, and we agree with discharging home to closely follow-up with their primary doctor or the referral orthopedist with the understanding that symptoms and presentations can change. We also discussed returning to the Emergency Department immediately if new or worsening symptoms occur. We have discussed the symptoms which are most concerning (e.g., changing or worsening pain, numbness, weakness) that necessitate immediate return - Vital Signs Vital signs: Temp Pulse Resp BP Pulse Ox 98.5 F 81 16 131/69 H 100 12/09/19 17:47 12/09/19 17:19 12/09/19 17:19 12/09/19 17:19 12/09/19 17:19 Discharge - Discharge Clinical Impression: Iliotibial band syndrome of left side, Condition: Stable Disposition: HOME, SELF-CARE Instructions: ([facility]) Additional Instructions: tylenol as needed for pain. apply heat 20 minutes on 20 minutes off several times a day, avoid going up and down steps. This can last for up to 2 to 3 weeks. Please return if you develop severe abdominal pain, bleeding that goes through more than 2 pads for more than 2 hours, pass out, or have any other symptoms that are concerning to you. Please follow-up closely with your OBGYN regarding todays visit. Please follow-up with payment specialist or your primary care provider for further evaluation. Return immediately for any new or worsening symptoms. Follow up with primary care provider, call tomorrow to make followup appointment. Prescriptions: Ibuprofen [Ibu] 600 mg PO Q6HP PRN #20 tablet PRN Reason: Methocarbamol [Robaxin 500 mg Tablet] 500 mg PO QID PRN #15 tablet PRN Reason: Forms: Return to Work Referrals: KELBY ROSADO MD [ACTIVE STAFF] - Follow up as needed MISTI AQUINO MD [ACTIVE PROVISIONAL STAFF] - Follow up as needed
[2019-12-09 18:59] VITALS: BP 128/68
== END 2019-12-09 18:58 | disposition home or self-care (01) ==
LOC: ER 17:11
DX: M76.32 Iliotibial band syndrome, left leg (principal); M79.642 Pain in left hand; Z33.1 Pregnant state, incidental
CPT/HCPCS: 81025; 99283

== ENCOUNTER 2020-06-25 04:30 | Emergency (ER) | payer MEDICAID ==
[2020-06-25] MEDS ORDERED: CEFTRIAXONE INJ 250 MG VIAL IM ONE (06:50)
[2020-06-25] MEDS ORDERED: AZITHROMYCIN 1 GM SUSP PACKET PO ONE (06:51)
--- NOTE | 2020-06-25 07:04 | ER Document Report ---
Entered by MARIAN GUTHRIE SCRIBE 06/25/20 0649 Acting as scribe for:FREEMAN PUENTE MD ED ENT - General Chief Complaint: Sore Throat Stated Complaint: SORE THROAT/DIFFICULTY SWALLOWING Mode of Arrival: Ambulatory Information source: Patient Notes: This 24-year-old female patient presents to the emergency department this morning with complaints of throat pain that radiates to her right ear for the last day. Patient states she has increased pain with swallowing and it has made her unable to eat. Patient states "I just want to eat and sleep". Patient states she has a remote history of strep throat. She denies any sick contacts, fevers, chills, cough, or loss of taste/smell. She denies any recent oral sex. TRAVEL OUTSIDE OF THE [place] IN LAST 30 DAYS: No - Related Data Allergies/Adverse Reactions: No Known Allergies Allergy (Verified 09/30/19 06:45) Past Medical History - General Information source: Patient - Social History Smoking Status: Current Every Day Smoker Cigarette use (# per day): Yes Frequency of alcohol use: None Drug Abuse: None Lives with: Family Family History: Reviewed & Not Pertinent Renal/ Medical History: Reports: Hx Ovarian Cysts Musculoskeletal Medical History: Reports Hx Musculoskeletal Deformity Surgical Hx: Negative Review of Systems - Review of Systems Constitutional: No symptoms reported EENT: See HPI, Ear pain, Throat pain Cardiovascular: No symptoms reported Respiratory: No symptoms reported Gastrointestinal: No symptoms reported Genitourinary: No symptoms reported Female Genitourinary: No symptoms reported Musculoskeletal: No symptoms reported Skin: No symptoms reported Hematologic/Lymphatic: No symptoms reported Neurological/Psychological: No symptoms reported -: Yes All other systems reviewed and negative Physical Exam - Vital signs Vitals: Temp Pulse Resp BP Pulse Ox 98.2 F 90 16 138/81 H 99 06/25/20 04:39 06/25/20 04:39 06/25/20 04:39 06/25/20 04:39 06/25/20 04:39 - Notes Notes: Physical Exam: General: Alert, appears well. HEENT: Normocephalic. Atraumatic. PERRL. Extraocular movements intact. Tonsillar hypertrophy and erythema, right > left, airway is patent. TMs are clear and non-bulging bilaterally. Neck: Supple. Anterior cervical lymphadenopathy, right > left. Respiratory: No respiratory distress. Clear and equal breath sounds bilaterally. Cardiovascular: Regular rate and rhythm. Abdominal: Normal Inspection. Non-tender. No distension. Normal Bowel Sounds. Back: No gross abnormalities. Extremities: Moves all four extremities. Upper extremities: Normal inspection. Normal ROM. Lower extremities: Normal inspection. No edema. Normal ROM. Neurological: Normal cognition. AAOx4. Normal speech. Psychological: Normal affect. Normal Mood. Skin: Warm. Dry. Normal color. Course - Re-evaluation Re-evalutation: 06/25/20 06:55 Patient resting comfortable no signs of distress other than the sore throat. - Vital Signs Vital signs: Temp Pulse Resp BP Pulse Ox 98.2 F 90 16 138/81 H 99 06/25/20 04:39 06/25/20 04:39 06/25/20 04:39 06/25/20 04:39 06/25/20 04:39 06/25/20 06:56 Vital signs stable - Laboratory Laboratory results interpreted by me: Throat culture pending also chlamydia GC PCR test in the lab based on throat swab. Discharge - Discharge Clinical Impression: Acute pharyngitis, Exposure to sexually transmitted disease (STD) Condition: Stable Disposition: HOME, SELF-CARE Instructions: Sore Throat ([facility]) Additional Instructions: Chlamydia You have a chlamydia infection. Chlamydia is a germ that grows inside the cells of the mucous membranes. It often infects the eyes, urethra, and fallopian tubes. It can cause chronic pain and scar tissue if untreated. Antibiotics are used to treat chlamydia. It's important to take all the medicine even if there are no symptoms. Use condoms to prevent spread of the infection. Because this infection can spread by sexual contact, it's important that your sexual partner be checked before resuming sexual relations. A positive test for chlamydia has to be reported to the health department. Call the doctor or return at once if you develop increasing fever, rash, severe pelvic pain, vaginal bleeding (other than your period), or problems with your bladder or bowels. You are also being treated for acute pharyngitis which could be related to her strep infection cultures are pending on your culture of your throat at this time. Treatment that you were given in the emergency department along with these discharge medications should treat both Streptococcus if that is a problem as well as any STD. Prescriptions: Doxycycline Hyclate 100 mg PO BID #20 tablet. Ibuprofen [Ibu] 800 mg PO TID PRN 7 Days #21 tablet PRN Reason: prn pain/swelling/fever I personally performed the services described in the documentation, reviewed and edited the documentation which was dictated to the scribe in my presence, and it accurately records my words and actions.
[2020-06-25 07:38] VITALS: BP 131/74
== END 2020-06-25 07:37 | disposition home or self-care (01) ==
LOC: ER 04:30
DX: J02.9 Acute pharyngitis, unspecified (principal); J35.1 Hypertrophy of tonsils; R59.0 Localized enlarged lymph nodes; H92.09 Otalgia, unspecified ear; F17.210 Nicotine dependence, cigarettes, uncomplicated; Z20.2 Contact with and (suspected) exposure to infections with a predominantly sexual mode of transmission
CPT/HCPCS: 96376; 99285; 96361; 96375; 96365; 87070; 87880; Q0144; J0696